=== PATIENT | female | born 1945 | race Caucasian/White ===

== ENCOUNTER → 2016-11-08 | Outpatient (REF) | payer MEDICARE, OTHER ==
[2016-11-08 13:03] LABS: MEAN CORPUSCULAR HEMOGLOBIN 31.3 pg (27.0-33.0); MEAN CORPUSCULAR HGB CONC 32.8 g/dl (32.0-36.5); MEAN CORPUSCULAR VOLUME 95.3 fl (80.0-96.0); RED CELL DISTRIBUTION WIDTH 13.2 % (11.5-14.5); WHITE BLOOD COUNT 6.8 K/mm3 (4.0-10.0)
[2016-11-08 13:10] LABS: ALBUMIN 3.9 GM/DL (3.2-5.2); ALKALINE PHOSPHATASE 71 U/L (45-117); ALT/SGPT 21 U/L (12-78); ANION GAP 9 MEQ/L (8-16); AST/SGOT 16 U/L (15-37); BILIRUBIN,TOTAL 0.4 MG/DL (0.2-1.0); BLOOD UREA NITROGEN 16 MG/DL (7-18); CALCIUM LEVEL 8.7 MG/DL (8.8-10.2); CARBON DIOXIDE LEVEL 26 MEQ/L (21-32); CHLORIDE LEVEL 105 MEQ/L (98-107); CHOLESTEROL LEVEL 188 MG/DL (<200); CREATININE FOR GFR 0.71 MG/DL (0.55-1.02); GLOMERULAR FILTRATION RATE > 60.0 (>39); GLUCOSE, FASTING 81 MG/DL (83-110); POTASSIUM SERUM 4.6 MEQ/L (3.5-5.1); SODIUM LEVEL 140 MEQ/L (136-145); TOTAL PROTEIN 6.5 GM/DL (6.4-8.2); TRIGLYCERIDES LEVEL 99 MG/DL (<150)
== END ==
LOC: M SFHCPLAZ 09:38
PROVIDERS: ATTEND Internal Medicine
DX: Z00.00 Encounter for general adult medical examination without abnormal findings (principal); E78.00 Pure hypercholesterolemia, unspecified; E55.9 Vitamin D deficiency, unspecified

== ENCOUNTER → 2017-01-11 | Outpatient (CLI) | payer MEDICARE, BC, OTHER ==
--- NOTE | 2017-01-11 09:44 | REP ---
Low-dose lung screening CT: There are no comparison studies. The study is performed without IV contrast. Images are displayed at lung settings only. No masses or nodules are identified. There are no infiltrates or effusions. The study is a category 1 low-dose lung screening CT examination. There is less than 1% incidence of carcinoma. Annual low-dose lung screening CT is recommended. Signed by Lang Lamb MD 01/11/2017 09:35 A
== END ==
LOC: M RAD 09:06
PROVIDERS: ATTEND Internal Medicine
DX: Z12.2 Encounter for screening for malignant neoplasm of respiratory organs (principal); F17.210 Nicotine dependence, cigarettes, uncomplicated

== ENCOUNTER → 2017-03-09 | Outpatient (CLI) | payer MEDICARE, BC, OTHER ==
--- NOTE | 2017-03-09 16:51 | REP ---
REASON: Pain, attention 5th metatarsal. COMPARISON: None. Degenerative changes are seen throughout the foot. There is no evidence of an acute fracture or destructive osseous lesion. Signed by Kaushik Whaley DO 03/09/2017 04:58 P
== END ==
LOC: M WUC 13:40
PROVIDERS: ATTEND Family Medicine
DX: M79.671 Pain in right foot (principal)
CPT/HCPCS: 73630; G0463

== ENCOUNTER → 2017-10-31 | Outpatient (CLI) | payer MEDICARE, BC, OTHER | LOC: M RAD 11:04 | DX: I70.213 Atherosclerosis of native arteries of extremities with intermittent claudication, bilateral legs (principal); F17.211 Nicotine dependence, cigarettes, in remission | CPT/HCPCS: 93925 ==

== ENCOUNTER → 2017-11-19 | Outpatient (CLI) | payer MEDICARE, BC, OTHER ==
[~2017-11-19] MED LIST: HEPARIN 1,000 UNITS/ML 10ML VIAL (FOR RADIOLOGY& DIALYSIS ONLY) As Ordered; ISOVUE-300 61% 50ML VIAL (Q9967) As Ordered; MIDAZOLAM INJ 2 MG/2 ML VIAL (J2250) As Ordered; fentaNYL 100 MCG/2 ML INJECTION (J3010) As Ordered
== END | disposition home or self-care (01) ==
LOC: M IRPRO 08:02
DX: I70.201 Unspecified atherosclerosis of native arteries of extremities, right leg (principal)
CPT/HCPCS: 37224

== ENCOUNTER → 2018-05-28 | Outpatient (CLI) | payer MEDICARE, BC, OTHER | LOC: M RAD 12:50 | DX: Z12.2 Encounter for screening for malignant neoplasm of respiratory organs (principal); Z87.891 Personal history of nicotine dependence; J98.4 Other disorders of lung | CPT/HCPCS: G0297 ==

== ENCOUNTER → 2018-07-02 | Outpatient (CLI) | payer MEDICARE, BC, OTHER | LOC: M RAD 12:51 | DX: I70.213 Atherosclerosis of native arteries of extremities with intermittent claudication, bilateral legs (principal) | CPT/HCPCS: 93925 ==

== ENCOUNTER → 2018-08-16 | Outpatient (CLI) | payer MEDICARE, BC ==
--- NOTE | 2018-08-16 14:17 | REPMRS ---
Patient History The patient states she has not had a clinical breast exam in over a year. Patient is postmenopausal and is nulliparous. Family history of breast cancer at age 41 in niece. Benign excisional biopsy of the right breast, 1972. No Hormone Replacement Therapy Digital Woman Screen Mammo: August 16, 2018 - Exam #: [id number] Bilateral CC and MLO view(s) were taken. Technologist: Susanne Avery, Technologist Prior study comparison: August 14, 2017, digital woman screen mammo performed at [facility]. July 26, 2016, digital woman screen mammo performed at [facility]. July 21, 2015, digital woman screen mammo performed at [facility]. FINDINGS: There are scattered fibroglandular densities. There is a moderate amount of residual fibroglandular tissue which is fairly symmetric. There is no interval development of dominant mass, architectural distortion, or clustered microcalcification typical of malignancy. There has been no change in the appearance of the mammogram from the prior studies. 3-D tomosynthesis shows no additional findings. Assessment: BI-RADS/ACR category 1 mammogram. Negative. Recommendation Routine screening mammogram of both breasts in 1 year (for women over age 40). This patient's Lifetime Breast Cancer RIsk is estimated at 4.3 %. This mammogram was interpreted with the aid of an FDA-approved computer-aided dectection system. Electronically Signed By: Thony Danielle MD 08/16/18 [id number]
== END ==
LOC: M WHC 10:14
PROVIDERS: ATTEND Internal Medicine
DX: Z12.31 Encounter for screening mammogram for malignant neoplasm of breast (principal); Z78.0 Asymptomatic menopausal state; Z86.018 Personal history of other benign neoplasm

== ENCOUNTER → 2019-05-20 | Outpatient (REF) | payer MEDICARE, OTHER ==
[2019-05-20 13:03] LABS: HEMATOCRIT 40.8 % (36.0-47.0); HEMOGLOBIN 13.2 g/dl (12.0-15.5); MEAN CORPUSCULAR HEMOGLOBIN 31.6 pg (27.0-33.0); MEAN CORPUSCULAR HGB CONC 32.4 g/dl (32.0-36.5); MEAN CORPUSCULAR VOLUME 97.6 fl (80.0-96.0); PLATELET COUNT, AUTOMATED 309 10^3/uL (150-450); RED BLOOD COUNT 4.18 10^6/uL (4.00-5.40); WHITE BLOOD COUNT 6.2 10^3/uL (4.0-10.0)
[2019-05-20 13:14] LABS: ALBUMIN 3.9 GM/DL (3.2-5.2); ALT/SGPT 23 U/L (12-78); BILIRUBIN,TOTAL 0.6 MG/DL (0.2-1.0); BLOOD UREA NITROGEN 15 MG/DL (7-18); CALCIUM LEVEL 8.8 MG/DL (8.8-10.2); CARBON DIOXIDE LEVEL 27 MEQ/L (21-32); CHLORIDE LEVEL 106 MEQ/L (98-107); CHOLESTEROL LEVEL 152 MG/DL (<200); CHOLESTEROL RISK RATIO 2.303 (<5); CREATININE FOR GFR 0.77 MG/DL (0.55-1.30); GLOMERULAR FILTRATION RATE > 60.0 (>39); GLUCOSE, FASTING 89 MG/DL (70-100); HDL CHOLESTEROL 66 MG/DL (>40); LDL CHOLESTEROL 65 MG/DL (<100); NON-HDL-C 86 MG/DL; POTASSIUM SERUM 4.5 MEQ/L (3.5-5.1); SODIUM LEVEL 139 MEQ/L (136-145); TOTAL 25(OH) VITAMIN D 26.2 NG/ML (30.0-100.0); TOTAL PROTEIN 6.7 GM/DL (6.4-8.2); TRIGLYCERIDES LEVEL 103 MG/DL (<150)
== END ==
LOC: M SFHCPLAZ 08:37
PROVIDERS: ATTEND Internal Medicine
DX: I73.9 Peripheral vascular disease, unspecified (principal); E78.00 Pure hypercholesterolemia, unspecified; E55.9 Vitamin D deficiency, unspecified

== ENCOUNTER → 2019-07-09 | Outpatient (CLI) | payer MEDICARE, BC, OTHER ==
--- NOTE | 2019-07-09 10:05 | REP ---
Clinical: Lung screening. History smoking. Comparison: 05/28/2018 Technique: Axial low-dose noncontrast images from the thoracic inlet to the upper abdomen using lung screening technique. Findings: The lung hutchins are well-aerated. No consolidation, significant nodule or mass lesion is appreciated. No pleural effusion/reaction or pneumothorax. Tracheobronchial tree is patent. Mediastinum demonstrates mild atherosclerotic changes of the coronary arteries without cardiomegaly. Impression: Lung-RADS category I. No nodule or suspicious abnormality. Management recommendations include annual low-dose CT evaluation. Electronically Signed by Dayo Beach MD 07/09/2019 09:58 A
== END ==
LOC: M RAD 09:37
PROVIDERS: ATTEND Internal Medicine
DX: Z87.891 Personal history of nicotine dependence (principal)

== ENCOUNTER → 2019-08-18 | Outpatient (CLI) | payer MEDICARE, BC ==
--- NOTE | 2019-08-18 12:42 | REPMRS ---
Patient History The patient states she had a clinical breast exam in August 2019.Family history of breast cancer at age 41 in niece. Benign excisional biopsy of the right breast, 1973. No Hormone Replacement Therapy Digital Woman Screen Mammo: August 18, 2019 - Exam #: [id number] Bilateral CC and MLO view(s) were taken. Technologist: Lore Boles, Technologist Prior study comparison: August 16, 2018, bilateral digital woman screen mammo performed at [facility]. August 14, 2017, digital woman screen mammo performed at [facility]. July 26, 2016, digital woman screen mammo performed at [facility]. FINDINGS: There are scattered fibroglandular densities. There has been no change in the appearance of the mammogram from the prior studies. There is a mild amount of scattered fibroglandular density which is fairly symmetric. There is no interval development of dominant mass, architectural distortion, or grouped microcalcification suggestive of malignancy. 3-D tomosynthesis shows no additional findings. Assessment: BI-RADS/ACR category 1 mammogram. Negative Mammogram. Recommendation Routine screening mammogram of both breasts in 1 year (for women over age 40). This patient's Lifetime Breast Cancer Risk is estimated at 4.0 %. This mammogram was interpreted with the aid of an FDA-approved computer-aided dectection system. Electronically Signed By: Thony Danielle MD 08/18/19 [id number]
--- NOTE | 2019-08-20 14:04 | DEXA ---
AP SPINE L1 - L4 1.074 -1.0 0.7 LT FEMUR TOTAL 0.745 -2.1 -0.5 LT NECK 0.689 -2.5 -0.7 RT FEMUR TOTAL 0.791 -1.7 0.1 RT NECK 0.717 -2.3 -0.5 TOTAL BODY TOTAL OTHER COMMENTS: There is low bone density of the spine and hips. The density of the spine has decreased 3.0% since the initial exam on 07/05/1999. The spine density has decreased 4.2% since the most recent exam on 07/21/2015. The density of the left hip has decreased 18.3% since the initial exam on 07/05/1999. The density of the left hip has decreased 5.7% since the most recent exam on 07/21/2015. The density of the right hip has decreased 9.7% since the initial exam on 11/29/2007. The density of the right hip has decreased 8.9% since the most recent exam on 07/21/2015. FOLLOW-UP: Recommendation for the next bone density exam: 2 years. MINGO
== END ==
LOC: M WHC 09:46
PROVIDERS: ATTEND Internal Medicine
DX: Z12.31 Encounter for screening mammogram for malignant neoplasm of breast (principal); Z80.3 Family history of malignant neoplasm of breast; Z86.018 Personal history of other benign neoplasm; M85.852 Other specified disorders of bone density and structure, left thigh

== ENCOUNTER → 2020-05-27 | Outpatient (REF) | payer MEDICARE, OTHER ==
[2020-05-27 14:08] LABS: HEMATOCRIT 42.2 % (36.0-47.0); HEMOGLOBIN 13.3 g/dl (12.0-15.5); MEAN CORPUSCULAR HEMOGLOBIN 30.4 pg (27.0-33.0); MEAN CORPUSCULAR HGB CONC 31.5 g/dl (32.0-36.5); MEAN CORPUSCULAR VOLUME 96.6 fl (80.0-96.0); PLATELET COUNT, AUTOMATED 339 10^3/uL (150-450); RED BLOOD COUNT 4.37 10^6/uL (4.00-5.40); WHITE BLOOD COUNT 7.1 10^3/uL (4.0-10.0)
[2020-05-27 14:43] LABS: ALT/SGPT 21 U/L (12-78); BILIRUBIN,TOTAL 0.4 MG/DL (0.2-1.0); BLOOD UREA NITROGEN 12 MG/DL (7-18); CALCIUM LEVEL 8.8 MG/DL (8.8-10.2); CARBON DIOXIDE LEVEL 28 MEQ/L (21-32); CHLORIDE LEVEL 107 MEQ/L (98-107); CHOLESTEROL LEVEL 163 MG/DL (<200); CHOLESTEROL RISK RATIO 2.173 (<5); CREATININE FOR GFR 0.82 MG/DL (0.55-1.30); GLOMERULAR FILTRATION RATE > 60.0 (>39); GLUCOSE, FASTING 88 MG/DL (70-100); HDL CHOLESTEROL 75 MG/DL (>40); LDL CHOLESTEROL 66 MG/DL (<100); NON-HDL-C 88 MG/DL; POTASSIUM SERUM 4.3 MEQ/L (3.5-5.1); SODIUM LEVEL 140 MEQ/L (136-145); TOTAL PROTEIN 7.1 GM/DL (6.4-8.2); TRIGLYCERIDES LEVEL 109 MG/DL (<150)
[2020-05-27 14:46] LABS: TOTAL 25(OH) VITAMIN D 29.6 NG/ML (30.0-100.0)
== END ==
LOC: M PLALAB 09:06
PROVIDERS: ATTEND Internal Medicine
DX: I73.9 Peripheral vascular disease, unspecified (principal); E78.00 Pure hypercholesterolemia, unspecified; E55.9 Vitamin D deficiency, unspecified

== ENCOUNTER → 2020-08-20 | Outpatient (CLI) | payer MEDICARE, BC ==
--- NOTE | 2020-08-20 12:21 | REPMRS ---
Patient History The patient states she has not had a clinical breast exam in over a year. Family history of breast cancer at age 41 in niece. Benign excisional biopsy of the right breast, 1972. No Hormone Replacement Therapy 3D TOMOSYNTHESIS WAS PERFORMED. [facility] 3.[facility] %. Volpara breast density b. Digital Woman Screen Mammo: August 20, 2020 - Exam #: [id number] Bilateral CC and MLO view(s) were taken. Technologist: Soraida Banks, Technologist Prior study comparison: August 18, 2019, bilateral digital woman screen mammo performed at [facility]. August 16, 2018, bilateral digital woman screen mammo performed at [facility]. FINDINGS: The breast tissue is heterogeneously dense. This may lower the sensitivity of mammography. There has been no change in the appearance of the mammogram from the prior studies. There is a moderate amount of residual fibroglandular tissue which is fairly symmetric. There is no interval development of dominant mass, areas of architectural distortion, or clustered microcalcification typical of malignancy. Assessment: BI-RADS/ACR category 1 mammogram. Negative Mammogram. Recommendation Routine screening mammogram in 1 year (for women over age 40). This mammogram was interpreted with the aid of an FDA-approved computer-aided dectection system. Electronically Signed By: Lang Sandra MD 08/20/20 [id number]
== END ==
LOC: M WHC 10:17
PROVIDERS: ATTEND Internal Medicine
DX: Z12.31 Encounter for screening mammogram for malignant neoplasm of breast (principal)

== ENCOUNTER → 2020-09-08 | Outpatient (CLI) | payer MEDICARE, BC, OTHER ==
--- NOTE | 2020-09-08 14:30 | REP ---
INDICATION: FORMER SMOKER. COMPARISON: 07/09/2019. TECHNIQUE: Low dose screening CT chest performed without the use of intravenous contrast. FINDINGS: Lungs: Clear, no infiltrate or nodule. Heart: Not enlarged. Thoracic aorta: No aneurysm. Visualized osseous structures: Unremarkable. IMPRESSION: Category 1 negative low dose noncontrast CT chest. <Electronically signed by Lang Sandra > 09/08/20 1819
== END ==
LOC: M RAD 12:14
PROVIDERS: ATTEND Internal Medicine
DX: Z12.2 Encounter for screening for malignant neoplasm of respiratory organs (principal); Z87.891 Personal history of nicotine dependence

== ENCOUNTER → 2021-03-18 | Outpatient (REF) | payer MEDICARE, BC, OTHER | LOC: M SFHCPLAZ 12:53 | PROVIDERS: ATTEND Physician Assistant | DX: J02.9 Acute pharyngitis, unspecified (principal); R09.81 Nasal congestion; R53.83 Other fatigue | CPT/HCPCS: 87081; 87426; 87880; G0463; U0003 ==

== ENCOUNTER → 2021-05-31 | Outpatient (CLI) | payer MEDICARE, BC, OTHER ==
[2021-05-31 13:28] LABS: BASO # 0.1 10^3/uL (0.0-0.2); BASO % 0.8 % (0.0-1.0); EOS # 0.2 10^3/uL (0.0-0.5); EOS % 2.5 % (0.0-3.0); HEMATOCRIT 42.1 % (36.0-47.0); HEMOGLOBIN 13.7 g/dl (12.0-15.5); LYMPH # 2.7 10^3/uL (1.5-5.0); LYMPH % 35.4 % (24.0-44.0); MEAN CORPUSCULAR HGB CONC 32.5 g/dl (32.0-36.5); MEAN CORPUSCULAR VOLUME 95.2 fl (80.0-96.0); MONO # 0.7 10^3/uL (0.0-0.8); MONO % 9.5 % (2.0-8.0); NEUTROPHILS # 3.9 10^3/uL (1.5-8.5); NEUTROPHILS % 51.4 % (36.0-66.0); PLATELET COUNT, AUTOMATED 331 10^3/uL (150-450); RED BLOOD COUNT 4.42 10^6/uL (4.00-5.40); WHITE BLOOD COUNT 7.5 10^3/uL (4.0-10.0)
[2021-05-31 15:09] LABS: ALBUMIN 3.7 GM/DL (3.2-5.2); ALT/SGPT 21 U/L (12-78); BILIRUBIN,TOTAL 0.4 MG/DL (0.2-1.0); BLOOD UREA NITROGEN 15 MG/DL (7-18); CALCIUM LEVEL 9.1 MG/DL (8.8-10.2); CARBON DIOXIDE LEVEL 27 MEQ/L (21-32); CHLORIDE LEVEL 107 MEQ/L (98-107); CHOLESTEROL LEVEL 171 MG/DL (<200); CHOLESTEROL RISK RATIO 2.552 (<5); CREATININE FOR GFR 0.74 MG/DL (0.55-1.30); GLOMERULAR FILTRATION RATE > 60.0 (>39); GLUCOSE, FASTING 87 MG/DL (70-100); HDL CHOLESTEROL 67 MG/DL (>40); LDL CHOLESTEROL 81 MG/DL (<100); NON-HDL-C 104 MG/DL; POTASSIUM SERUM 4.5 MEQ/L (3.5-5.1); SODIUM LEVEL 140 MEQ/L (136-145); TOTAL PROTEIN 6.7 GM/DL (6.4-8.2); TRIGLYCERIDES LEVEL 117 MG/DL (<150)
[2021-05-31 15:15] LABS: VITAMIN B12 LEVEL 386 PG/ML
[2021-05-31 15:16] LABS: FOLATE 5.4 NG/ML
== END ==
LOC: M PLALAB 09:23
PROVIDERS: ATTEND Internal Medicine
DX: E78.00 Pure hypercholesterolemia, unspecified (principal); I73.9 Peripheral vascular disease, unspecified; R41.3 Other amnesia

== ENCOUNTER → 2021-09-06 | Outpatient (CLI) | payer MEDICARE, BC, OTHER | LOC: M WHC 08:35 | PROVIDERS: ATTEND Internal Medicine | DX: Z12.31 Encounter for screening mammogram for malignant neoplasm of breast (principal); Z80.3 Family history of malignant neoplasm of breast; Z78.0 Asymptomatic menopausal state ==

== ENCOUNTER → 2021-09-29 | Outpatient (CLI) | payer MEDICARE, BC, OTHER | LOC: M RAD 08:32 | PROVIDERS: ATTEND Internal Medicine | DX: Z12.2 Encounter for screening for malignant neoplasm of respiratory organs (principal); Z87.891 Personal history of nicotine dependence ==

== ENCOUNTER → 2022-06-06 | Outpatient (CLI) | payer MEDICARE, BC, OTHER ==
[2022-06-06 15:41] LABS: ALBUMIN 3.7 GM/DL (3.2-5.2); ALT/SGPT 24 U/L (12-78); BILIRUBIN,TOTAL 0.5 MG/DL (0.2-1.0); BLOOD UREA NITROGEN 14 MG/DL (7-18); CALCIUM LEVEL 9.1 MG/DL (8.8-10.2); CARBON DIOXIDE LEVEL 26 MEQ/L (21-32); CHLORIDE LEVEL 105 MEQ/L (98-107); CHOLESTEROL LEVEL 156 MG/DL (<200); CHOLESTEROL RISK RATIO 2.328 (<5); CREATININE FOR GFR 0.83 MG/DL (0.55-1.30); GLOMERULAR FILTRATION RATE > 60.0 (>39); GLUCOSE, FASTING 97 MG/DL (70-100); HDL CHOLESTEROL 67 MG/DL (>40); LDL CHOLESTEROL 67 MG/DL (<100); NON-HDL-C 89 MG/DL; POTASSIUM SERUM 4.9 MEQ/L (3.5-5.1); SODIUM LEVEL 140 MEQ/L (136-145); TOTAL PROTEIN 6.7 GM/DL (6.4-8.2); TRIGLYCERIDES LEVEL 111 MG/DL (<150)
[2022-06-06 16:53] LABS: FOLATE 10.8 NG/ML (>5.4); TOTAL 25(OH) VITAMIN D 43.1 NG/ML (30.0-100.0); VITAMIN B12 LEVEL 287 PG/ML (247-911)
== END ==
LOC: M PLALAB 09:52
PROVIDERS: ATTEND Nurse Practitioner Adult Health
DX: E78.00 Pure hypercholesterolemia, unspecified (principal); Z79.899 Other long term (current) drug therapy; R41.3 Other amnesia; E55.9 Vitamin D deficiency, unspecified

== ENCOUNTER → 2022-06-13 | Outpatient (REF) | payer MEDICARE, OTHER | LOC: M SFHCPLAZ 09:51 | PROVIDERS: ATTEND Nurse Practitioner Adult Health | DX: I73.9 Peripheral vascular disease, unspecified (principal); E78.00 Pure hypercholesterolemia, unspecified; E55.9 Vitamin D deficiency, unspecified; R41.3 Other amnesia ==

== ENCOUNTER → 2022-09-27 | Outpatient (CLI) | payer MEDICARE, BC, OTHER | LOC: M WHC 08:33 | PROVIDERS: ATTEND Nurse Practitioner Adult Health | DX: Z12.31 Encounter for screening mammogram for malignant neoplasm of breast (principal); M85.851 Other specified disorders of bone density and structure, right thigh; M85.852 Other specified disorders of bone density and structure, left thigh ==

== ENCOUNTER → 2022-10-02 | Outpatient (CLI) | payer MEDICARE, BC, OTHER | LOC: M RAD 08:25 | PROVIDERS: ATTEND Nurse Practitioner Adult Health | DX: Z12.2 Encounter for screening for malignant neoplasm of respiratory organs (principal); Z87.891 Personal history of nicotine dependence; I70.0 Atherosclerosis of aorta; I25.10 Atherosclerotic heart disease of native coronary artery without angina pectoris; K44.9 Diaphragmatic hernia without obstruction or gangrene; E04.1 Nontoxic single thyroid nodule ==

== ENCOUNTER → 2023-06-01 | Outpatient (CLI) | payer MEDICARE, BC, OTHER ==
[2023-06-01 14:11] LABS: HEMATOCRIT 40.8 % (36.0-47.0); HEMOGLOBIN 13.2 g/dl (12.0-15.5); MEAN CORPUSCULAR HEMOGLOBIN 31.1 pg (27.0-33.0); MEAN CORPUSCULAR HGB CONC 32.4 g/dl (32.0-36.5); MEAN CORPUSCULAR VOLUME 96.2 fl (80.0-96.0); PLATELET COUNT, AUTOMATED 349 10^3/uL (150-450); RED BLOOD COUNT 4.24 10^6/uL (4.00-5.40); WHITE BLOOD COUNT 7.9 10^3/uL (4.0-10.0)
[2023-06-01 14:30] LABS: THYROID STIMULATING HORMONE 1.681 uIU/ML (0.55-4.78)
[2023-06-01 14:31] LABS: TOTAL 25(OH) VITAMIN D 39.9 NG/ML (20.0-100.0)
[2023-06-01 14:34] LABS: ALBUMIN 3.5 G/DL (3.2-5.2); ALKALINE PHOSPHATASE 100 U/L (46-116); ALT/SGPT 18 U/L (7.0-40); AST/SGOT 14 U/L (<34); BILIRUBIN,TOTAL 0.5 MG/DL (0.3-1.2); BLOOD UREA NITROGEN 14 MG/DL (9-23); CALCIUM LEVEL 8.7 MG/DL (8.3-10.6); CARBON DIOXIDE LEVEL 27 MMOL/L (20-31); CHLORIDE LEVEL 106 MMOL/L (98-107); CHOLESTEROL LEVEL 159 MG/DL (<200); CHOLESTEROL RISK RATIO 2.65 (<5); CREATININE FOR GFR 0.81 MG/DL (0.55-1.30); GLOMERULAR FILTRATION RATE > 60.0 (>39); GLUCOSE, FASTING 104 MG/DL (74-106); HDL CHOLESTEROL 59.9 MG/DL (>40); LDL CHOLESTEROL 66.9 MG/DL (<100); NON-HDL-C 99.1 MG/DL; POTASSIUM SERUM 4.5 MMOL/L (3.5-5.1); SODIUM LEVEL 140 MMOL/L (136-145); TOTAL PROTEIN 6.5 G/DL (5.7-8.2); TRIGLYCERIDES LEVEL 161 MG/DL (<150)
[2023-06-01 14:35] LABS: VITAMIN B12 LEVEL 1904 PG/ML (211-911)
[2023-06-01 14:37] LABS: FOLATE 8.6 NG/ML (>5.4)
== END ==
LOC: M PLALAB 11:23
PROVIDERS: ATTEND Nurse Practitioner Adult Health
DX: R41.3 Other amnesia (principal); E55.9 Vitamin D deficiency, unspecified; E78.00 Pure hypercholesterolemia, unspecified; I73.9 Peripheral vascular disease, unspecified

== ENCOUNTER → 2023-09-28 | Outpatient (CLI) | payer MEDICARE, BC, OTHER | LOC: M WHC 08:47 | PROVIDERS: ATTEND Nurse Practitioner Adult Health | DX: Z12.31 Encounter for screening mammogram for malignant neoplasm of breast (principal); R92.323 Mammographic fibroglandular density, bilateral breasts ==

== ENCOUNTER → 2023-11-19 | Outpatient (CLI) | payer MEDICARE, BC ==
[2023-11-19 11:42] LABS: HEMATOCRIT 42.8 % (36.0-47.0); HEMOGLOBIN 13.8 g/dl (12.0-15.5); MEAN CORPUSCULAR HEMOGLOBIN 30.7 pg (27.0-33.0); MEAN CORPUSCULAR HGB CONC 32.2 g/dl (32.0-36.5); MEAN CORPUSCULAR VOLUME 95.3 fl (80.0-96.0); PLATELET COUNT, AUTOMATED 339 10^3/uL (150-450); RED BLOOD COUNT 4.49 10^6/uL (4.00-5.40); WHITE BLOOD COUNT 7.9 10^3/uL (4.0-10.0)
[2023-11-19 12:07] LABS: ALBUMIN 3.6 G/DL (3.2-5.2); ALKALINE PHOSPHATASE 87 U/L (46-116); ALT/SGPT 29 U/L (7.0-40); AST/SGOT 17 U/L (<34); BILIRUBIN,TOTAL 0.6 MG/DL (0.3-1.2); BLOOD UREA NITROGEN 18 MG/DL (9-23); CALCIUM LEVEL 8.9 MG/DL (8.3-10.6); CARBON DIOXIDE LEVEL 28 MMOL/L (20-31); CHLORIDE LEVEL 104 MMOL/L (98-107); CHOLESTEROL LEVEL 154 MG/DL (<200); CHOLESTEROL RISK RATIO 2.58 (<5); CREATININE FOR GFR 0.84 MG/DL (0.55-1.30); GLOMERULAR FILTRATION RATE > 60.0 (>39); GLUCOSE, FASTING 86 MG/DL (74-106); HDL CHOLESTEROL 59.6 MG/DL (>40); NON-HDL-C 94.4 MG/DL; POTASSIUM SERUM 4.9 MMOL/L (3.5-5.1); SODIUM LEVEL 137 MMOL/L (136-145); THYROID STIMULATING HORMONE 1.827 uIU/ML (0.55-4.78); TOTAL PROTEIN 6.5 G/DL (5.7-8.2); TRIGLYCERIDES LEVEL 122 MG/DL (<150)
[2023-11-19 12:08] LABS: FOLATE 16.4 NG/ML (>5.4); VITAMIN B12 LEVEL 943 PG/ML (211-911)
== END ==
LOC: M PLALAB 08:46
PROVIDERS: ATTEND Nurse Practitioner Adult Health
DX: I73.9 Peripheral vascular disease, unspecified (principal); E78.00 Pure hypercholesterolemia, unspecified; E55.9 Vitamin D deficiency, unspecified; R41.3 Other amnesia

== ENCOUNTER → 2024-01-01 | Outpatient (CLI) | payer MEDICARE, BC | LOC: M RAD 13:56 | PROVIDERS: ATTEND Nurse Practitioner Adult Health | DX: Z12.2 Encounter for screening for malignant neoplasm of respiratory organs (principal); Z87.891 Personal history of nicotine dependence ==

== ENCOUNTER → 2024-09-29 | Outpatient (CLI) | payer MEDICARE, BC | LOC: M WHC 08:34 | PROVIDERS: ATTEND Nurse Practitioner Adult Health | DX: M81.0 Age-related osteoporosis without current pathological fracture (principal); R92.2 Inconclusive mammogram; M85.89 Other specified disorders of bone density and structure, multiple sites; R92.333 Mammographic heterogeneous density, bilateral breasts ==

== ENCOUNTER → 2024-10-08 | Outpatient (CLI) | payer MEDICARE, BC | LOC: M WHC 07:47 | PROVIDERS: ATTEND Nurse Practitioner Adult Health | DX: R92.2 Inconclusive mammogram (principal) | CPT/HCPCS: 77065; G0279 ==

== ENCOUNTER → 2024-11-25 | Outpatient (CLI) | payer MEDICARE, BC ==
[2024-11-25 10:48] LABS: HEMATOCRIT 42.2 % (36.0-47.0); HEMOGLOBIN 13.5 g/dl (12.0-15.5); MEAN CORPUSCULAR HEMOGLOBIN 30.8 pg (27.0-33.0); MEAN CORPUSCULAR VOLUME 96.1 fl (80.0-96.0); PLATELET COUNT, AUTOMATED 296 10^3/uL (150-450); RED BLOOD COUNT 4.39 10^6/uL (4.00-5.40); WHITE BLOOD COUNT 7.8 10^3/uL (4.0-10.0)
[2024-11-25 11:13] LABS: ALBUMIN 3.6 G/DL (3.2-5.2); BILIRUBIN,TOTAL 0.5 MG/DL (0.3-1.2); CALCIUM LEVEL 8.7 MG/DL (8.3-10.6); CHOLESTEROL RISK RATIO 2.77 (<5); CREATININE FOR GFR 0.76 MG/DL (0.55-1.30); GLOMERULAR FILTRATION RATE 80.2 (>39); HDL CHOLESTEROL 56.5 MG/DL (>40); LDL CHOLESTEROL 80.3 MG/DL (<100); NON-HDL-C 100.5 MG/DL; POTASSIUM SERUM 4.7 MMOL/L (3.5-5.1); TOTAL PROTEIN 6.4 G/DL (5.7-8.2)
[2024-11-25 11:14] LABS: FREE T4 1.1 NG/DL (0.89-1.76); THYROID STIMULATING HORMONE 1.111 uIU/ML (0.55-4.78)
[2024-11-25 11:15] LABS: TOTAL 25(OH) VITAMIN D 47.2 NG/ML (20.0-100.0)
== END ==
LOC: M PLALAB 09:13
PROVIDERS: ATTEND Nurse Practitioner Adult Health
DX: E78.00 Pure hypercholesterolemia, unspecified (principal); E55.9 Vitamin D deficiency, unspecified; I73.9 Peripheral vascular disease, unspecified; Z13.29 Encounter for screening for other suspected endocrine disorder

== ENCOUNTER → 2025-04-13 | Outpatient (CLI) | payer MEDICARE, BC | LOC: M WHC 10:54 | PROVIDERS: ATTEND Nurse Practitioner Adult Health | DX: R92.8 Other abnormal and inconclusive findings on diagnostic imaging of breast (principal) | CPT/HCPCS: 77065; G0279 ==

== ENCOUNTER → 2025-06-15 | Outpatient (CLI) | payer MEDICARE, BC ==
[2025-06-15 10:56] LABS: PLATELET COUNT, AUTOMATED 319 10^3/uL (150-450)
[2025-06-15 11:33] LABS: ALT/SGPT 15.0 U/L (7.0-40); AST/SGOT 18.0 U/L (<34); CALCIUM LEVEL 8.9 MG/DL (8.3-10.6); CARBON DIOXIDE LEVEL 29.0 MMOL/L (20-31); CHLORIDE LEVEL 105.0 MMOL/L (98-107); CHOLESTEROL LEVEL 156.0 MG/DL (<200); CHOLESTEROL RISK RATIO 2.71 (<5); CREATININE FOR GFR 0.83 MG/DL (0.55-1.30); GLOMERULAR FILTRATION RATE 72.1 (>39); LDL CHOLESTEROL 77.4 MG/DL (<100); NON-HDL-C 98.6 MG/DL; POTASSIUM SERUM 4.6 MMOL/L (3.5-5.1); SODIUM LEVEL 142.0 MMOL/L (136-145); TRIGLYCERIDES LEVEL 106.0 MG/DL (<150)
[2025-06-15 11:36] LABS: TOTAL 25(OH) VITAMIN D 56.7 NG/ML (20.0-100.0)
== END ==
LOC: M PLALAB 07:30
PROVIDERS: ATTEND Nurse Practitioner Adult Health
DX: I73.9 Peripheral vascular disease, unspecified (principal); E55.9 Vitamin D deficiency, unspecified; E78.00 Pure hypercholesterolemia, unspecified

== ENCOUNTER → 2025-08-05 | Outpatient (CLI) | payer MEDICARE, BC | LOC: M RAD 08:14 | PROVIDERS: ATTEND Nurse Practitioner Adult Health | DX: Z82.49 Family history of ischemic heart disease and other diseases of the circulatory system (principal) ==